=== PATIENT | female | born 1950 | race Caucasian/White ===

== ENCOUNTER 2019-04-29 10:39 | Emergency (ER) | payer MEDICARE, OTHER ==
[2019-04-29] MEDS ORDERED: Propofol 200 MG/20 ML SDV IVPUSH ONE (11:28)
--- NOTE | 2019-04-29 11:30 | EDM.PDOC ---
ED HPI GENERAL MEDICAL PROBLEM - General Chief Complaint: Cardiovascular Problem Stated Complaint: MEDICAL Time Seen by Provider: 04/29/19 10:50 Source of Information: Reports: Patient History Limitations: Reports: No Limitations - History of Present Illness INITIAL COMMENTS - FREE TEXT/NARRATIVE: 69-year-old female who underwent a cardiology evaluation in [place] last week, rather thorough including an angiogram which was negative. She did have intermittent bouts of atrial fibrillation however, so was started on Eliquis and scheduled for cardiac rehab. She was in cardiac rehab on Monday for her initial evaluation, and was in a normal sinus rhythm. Over the weekend she developed some intermittent shortness of breath and palpitations on Monday and have been persistent. This morning she showed up for cardiac rehab and was found to be in atrial fibrillation with a rate of 120-130 so was sent to the emergency room. She is very anxious but otherwise feels fine. Duration: Day(s): (Symptoms have been likely from the last 24 to 48 hours) denies Pain Score (Numeric/FACES): 0 - Related Data Allergies Allergy/AdvReac Type Severity Reaction Status Date / Time allopurinol Allergy Unknown Blisters Verified 04/29/19 10:51 adhesive Allergy Itching Verified 04/29/19 10:51 Home Meds: Home Meds Indomethacin 25 mg PO TID PRN 08/18/14 [History] Omeprazole [Prilosec] 40 mg PO DAILY 08/18/14 [History] Adalimumab [Humira Pen] 40 mg SQ ASDIRECTED 05/07/15 [History] Triamcinolone Acetonide [Kenalog 0.1% Oint] 1 applic TOP BID 05/07/15 [History] Fish Oil/DHA/EPA [Fish Oil 1,200 MG] 1,200 mg PO DAILY 05/08/15 [History] Apixaban [Eliquis] 1 tab PO BID 04/29/19 [History] Aspirin [[place] Aspirin] 81 mg PO DAILY 04/29/19 [History] Furosemide [Lasix] 20 mg PO DAILY 04/29/19 [History] Metoprolol Succinate 25 mg PO DAILY 04/29/19 [History] amLODIPine Besylate [Amlodipine Besylate] 1 tab PO DAILY 04/29/19 [History] atorvaSTATin [Lipitor] 40 mg PO BEDTIME 04/29/19 [History] Past Medical History HEENT History: Reports: Cataract, Impaired Vision Gastrointestinal History: Reports: Cholelithiasis, Gastritis, GERD, Hemorrhoids Genitourinary History: Reports: Renal Calculus [employer]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: Musculoskeletal History: Reports: Arthritis, Gout, Osteoporosis Endocrine/Metabolic History: Reports: Obesity/BMI 30+ Hematologic History: Reports: Anemia, Iron Deficiency Dermatologic History: Reports: Psoriasis Other Dermatologic History: dry skin - Infectious Disease History Infectious Disease History: Reports: Chicken Pox, Measles - Past Surgical History HEENT Surgical History: Reports: Adenoidectomy, Cataract Surgery, Tonsillectomy Female Surgical History: Reports: Breast Reduction, Section, D&C, Hysterectomy Musculoskeletal Surgical History: Reports: Arthroscopic Knee, Carpal Tunnel, Joint Replacement, Knee Replacement Dermatological Surgical History: Reports: Plastic Surgical Reconstruction/Repair , Skin Biopsy Social & Family History - Family History HEENT: Reports: Impaired Vision, Macular Degeneration Cardiac: Reports: Angina, CAD GI: Reports: Cholelithiasis, Hiatal Hernia : Reports: Dialysis, Renal Disease/Insufficiency OBGYN: Reports: Dysfunctional uterine bleeding, Musculoskeletal: Reports: Arthritis, Osteoarthritis Neurological: Reports: Neuropathy, Diabetic Endocrine/Metabolic: Reports: Diabetes, type II, Obesity/MBI 30+ Hematologic: Reports: Anemia Immunologic: Reports: None Dermatologic: Reports: Eczema Oncologic: Reports: Other (See Below) Other Oncologic Family History: testicular ca x2 ED ROS GENERAL - Review of Systems Review Of Systems: See Below Constitutional: Denies: Fever, Chills HEENT: Reports: No Symptoms Respiratory: Reports: Shortness of Breath (Especially with activity) Cardiovascular: Reports: Palpitations. Denies: Chest Pain GI/Abdominal: Reports: Nausea (Mild nausea) : Reports: No Symptoms Skin: Reports: No Symptoms Neurological: Reports: No Symptoms Psychiatric: Reports: Anxiety ED EXAM, GENERAL - Physical Exam Exam: See Below Exam Limited By: No Limitations General Appearance: Alert, Anxious Eye Exam: Bilateral Eye: Normal Inspection Respiratory/Chest: No Respiratory Distress, Lungs Clear Cardiovascular: Tachycardia, Irregularly Irregular GI/Abdominal: Non-Tender Neurological: Alert, Oriented Psychiatric: Anxious Skin Exam: Warm, Dry Course - Vital Signs Last Recorded V/S: Last Vital Signs Temp 98 F 04/29/19 11:47 Pulse 122 H 04/29/19 11:47 Resp 21 H 04/29/19 11:47 BP 125/85 04/29/19 11:47 Pulse Ox 97 04/29/19 11:47 - Orders/Labs/Meds Orders: Active Orders 24 hr Category Date Time Status EKG Documentation Completion [RC] ASDIRECTED Care 04/29/19 12:16 Active EKG 12 Lead [EK] Routine Ther 04/29/19 12:16 Ordered Meds: Medications Discontinued Medications Generic Name Dose Route Start Last Admin Trade Name Bari PRN Reason Stop Dose Admin Propofol 100 mg 04/29/19 11:28 04/29/19 13:27 Diprivan 20 Ml IVPUSH 04/29/19 11:29 100 mg ONETIME ONE Administration - Re-Assessments/Exams Free Text/Narrative Re-Assessment/Exam: 04/29/19 11:31 Patient was observed for 20 minutes and continued to be in a rapid atrial fibrillation. She has not had anything oral for over 3 hours, so will be electively cardioverted under propofol sedation. Dr. Akbar Biggs of the hospitalist service assisted. Indications and risks were discussed with the patient and she agreed with the plan. 04/29/19 12:12 Preparations were taken for elective cardioversion, patient was given 100 mg of IV propofol and acquired significant sedation. 200 J of synchronized cardioversion was given, it was unsuccessful so a second synchronized shock was given at 300 J which was successful. Patient was observed for an additional 20 minutes and remained in sinus rhythm. Blood pressure normalized. Bedside care was given while under sedation for 16 minutes. Departure - Departure Time of Disposition: 13:30 Disposition: Home, Self-Care 01 Clinical Impression: Atrial fibrillation with rapid ventricular response Instructions: Atrial Fibrillation, [id number] Referrals: PCP,None [Primary Care Provider] - Forms: ED Department Discharge Care Plan Goals: Continue your current medications, consider an extra dose of metoprolol if you develop palpitations or recurring atrial fibrillation. Follow-up as scheduled and take copies of your heart rhythm to your cardiology consultation. Return to the emergency room at any time if you feel you are worsening such as shortness of breath or fast heart rate, chest pain, or other concerns. Sepsis Event Note - Evaluation Sepsis Screening Result: No Definite Risk - Focused Exam Vital Signs: Vital Signs Temp Pulse Resp BP Pulse Ox 04/29/19 11:47 98 F 122 H 21 H 125/85 97 04/29/19 10:56 98 F 128 H 18 125/77 94 L Date Exam was Performed: 04/29/19 Time Exam was Performed: 13:58 - My Orders Last 24 Hours: My Active Orders 04/29/19 12:16 EKG Documentation Completion [RC] ASDIRECTED EKG 12 Lead [EK] Routine - Assessment/Plan Last 24 Hours: My Active Orders 04/29/19 12:16 EKG Documentation Completion [RC] ASDIRECTED EKG 12 Lead [EK] Routine
[2019-04-29 11:49] VITALS: BP 125/85; PULSE 122
--- NOTE | 2019-04-29 15:51 | PCM.SN ---
- Free Text/Narrative Note: Ms. Solorio is a 69-year-old woman who presented to the emergency department with atrial fibrillation and rapid ventricular response. I was asked to be present as a second provider for the cardioversion, by Dr. Solano. Dr. Solano managed IV sedation as well as the cardioversion. She was cardioverted to sinus rhythm with no significant complications.
== END 2019-04-29 13:15 | disposition home or self-care (01) ==
LOC: JP.ED 10:39
DX: I48.91 Unspecified atrial fibrillation (principal); K21.9 Gastro-esophageal reflux disease without esophagitis; M10.9 Gout, unspecified; E66.9 Obesity, unspecified; Z79.82 Long term (current) use of aspirin; Z79.899 Other long term (current) drug therapy; Z98.49 Cataract extraction status, unspecified eye; Z98.890 Other specified postprocedural states; Z90.710 Acquired absence of both cervix and uterus; Z91.09 Other allergy status, other than to drugs and biological substances; Z88.8 Allergy status to other drugs, medicaments and biological substances
CPT/HCPCS: 92960; 93005; 93010; 99284; 99285; J2704

== ENCOUNTER 2019-05-13 10:50 | Emergency (ER) | payer MEDICARE, OTHER ==
[2019-05-13] MEDS ORDERED: Propofol 200 MG/20 ML SDV IVPUSH ONE (11:56)
--- NOTE | 2019-05-13 11:56 | EDM.PDOC ---
ED HPI GENERAL MEDICAL PROBLEM - General Chief Complaint: Cardiovascular Problem Stated Complaint: FROM REHAB Time Seen by Provider: 05/13/19 11:15 Source of Information: Reports: Patient History Limitations: Reports: No Limitations - History of Present Illness INITIAL COMMENTS - FREE TEXT/NARRATIVE: 61-year-old female who showed up for cardiac rehabilitation this morning in atrial fibrillation. She has no symptoms but her rate was 110 to 130 so they sent her to the emergency room.. This is very similar to what happened to her 2 weeks ago which she responded to cardioversion in the emergency room. Onset: Unknown/Unsure Associated Symptoms: Reports: No Other Symptoms - Related Data Allergies Allergy/AdvReac Type Severity Reaction Status Date / Time allopurinol Allergy Unknown Blisters Verified 05/13/19 11:04 adhesive Allergy Itching Verified 05/13/19 11:04 Home Meds: Home Meds Omeprazole [Prilosec] 40 mg PO DAILY 08/18/14 [History] Adalimumab [Humira Pen] 40 mg SQ ASDIRECTED 05/07/15 [History] Triamcinolone Acetonide [Kenalog 0.1% Oint] 1 applic TOP BID 05/07/15 [History] Fish Oil/DHA/EPA [Fish Oil 1,200 MG] 1,200 mg PO DAILY 05/08/15 [History] Apixaban [Eliquis] 1 tab PO BID 04/29/19 [History] Aspirin [[place] Aspirin] 81 mg PO DAILY 04/29/19 [History] Furosemide [Lasix] 20 mg PO DAILY 04/29/19 [History] Metoprolol Succinate 25 mg PO DAILY 04/29/19 [History] amLODIPine Besylate [Amlodipine Besylate] 1 tab PO DAILY 04/29/19 [History] atorvaSTATin [Lipitor] 40 mg PO BEDTIME 04/29/19 [History] Past Medical History HEENT History: Reports: Cataract, Impaired Vision Gastrointestinal History: Reports: Cholelithiasis, Gastritis, GERD, Hemorrhoids Genitourinary History: Reports: Renal Calculus 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: Musculoskeletal History: Reports: Arthritis, Gout, Osteoporosis Endocrine/Metabolic History: Reports: Obesity/BMI 30+ Hematologic History: Reports: Anemia, Iron Deficiency Dermatologic History: Reports: Psoriasis Other Dermatologic History: dry skin - Infectious Disease History Infectious Disease History: Reports: Chicken Pox, Measles - Past Surgical History Head Surgeries/Procedures: Reports: None HEENT Surgical History: Reports: Adenoidectomy, Cataract Surgery, Tonsillectomy Female Surgical History: Reports: Breast Reduction, Section, D&C, Hysterectomy Musculoskeletal Surgical History: Reports: Arthroscopic Knee, Carpal Tunnel, Joint Replacement, Knee Replacement Dermatological Surgical History: Reports: Plastic Surgical Reconstruction/Repair , Skin Biopsy Social & Family History - Family History HEENT: Reports: Impaired Vision, Macular Degeneration Cardiac: Reports: Angina, CAD GI: Reports: Cholelithiasis, Hiatal Hernia : Reports: Dialysis, Renal Disease/Insufficiency OBGYN: Reports: Dysfunctional uterine bleeding, Musculoskeletal: Reports: Arthritis, Osteoarthritis Neurological: Reports: Neuropathy, Diabetic Endocrine/Metabolic: Reports: Diabetes, type II, Obesity/MBI 30+ Hematologic: Reports: Anemia Immunologic: Reports: None Dermatologic: Reports: Eczema Oncologic: Reports: Other (See Below) Other Oncologic Family History: testicular ca x2 - Tobacco Use Smoking Status *Q: Never Smoker - Caffeine Use Caffeine Use: Reports: Coffee Caffeine Use Comment: has not had in over 2 weeks - Recreational Drug Use Recreational Drug Use: Yes Recreational Drug Type: Reports: Marijuana/Hashish ED ROS GENERAL - Review of Systems Review Of Systems: See Below Constitutional: Denies: Fever, Chills, Malaise HEENT: Reports: No Symptoms Respiratory: Denies: Shortness of Breath, Cough Cardiovascular: Denies: Chest Pain GI/Abdominal: Denies: Abdominal Pain Musculoskeletal: Reports: Other (She has persistent left lower extremity edema secondary to a surgery on her knee which seems to be responding to recently prescribed Lasix) Neurological: Reports: No Symptoms Psychiatric: Reports: Anxiety ED EXAM, GENERAL - Physical Exam Exam: See Below Exam Limited By: No Limitations General Appearance: Alert, No Apparent Distress Head: Atraumatic Neck: Normal Inspection Respiratory/Chest: No Respiratory Distress, Lungs Clear Cardiovascular: Irregularly Irregular GI/Abdominal: Soft, Non-Tender Course - Vital Signs Last Recorded V/S: Last Vital Signs Temp 95.4 F 05/13/19 11:09 Pulse 78 05/13/19 12:55 Resp 15 05/13/19 12:49 BP 113/83 05/13/19 12:55 Pulse Ox 98 05/13/19 12:49 - Orders/Labs/Meds Meds: Medications Discontinued Medications Generic Name Dose Route Start Last Admin Trade Name Freq PRN Reason Stop Dose Admin Metoprolol Tartrate 25 mg 05/13/19 12:38 05/13/19 12:55 Lopressor PO 05/13/19 12:39 25 mg ONETIME ONE Administration Propofol 100 mg 05/13/19 11:56 05/13/19 12:34 Diprivan 20 Ml IVPUSH 05/13/19 11:57 80 mg ONETIME ONE Administration - Re-Assessments/Exams Free Text/Narrative Re-Assessment/Exam: 05/13/19 11:56 EKG confirms atrial fibrillation with a rate between 110 and 125. She has not eaten for the last 3-1/2 hours, so cardioversion again would be reasonable. After discussing this with the patient, she elected to try cardioversion. 05/13/19 12:39 After consent, using propofol sedation and electrocardioversion at 300 J she was converted to sinus rhythm. After waking up in next 25 mg of short-acting metoprolol was given orally. Tomorrow she will start with 50 mg long-acting metoprolol daily instead of 25. Departure - Departure Time of Disposition: 13:08 Disposition: Home, Self-Care 01 Clinical Impression: Atrial fibrillation with rapid ventricular response Instructions: Atrial Fibrillation, [id number] Referrals: PCP,None [Primary Care Provider] - Forms: ED Department Discharge Care Plan Goals: Increase her metoprolol to 50 mg daily starting tomorrow morning, and go to rehabilitation on Monday as usual. Sepsis Event Note - Evaluation Sepsis Screening Result: No Definite Risk - Focused Exam Vital Signs: Vital Signs Temp Pulse Pulse Resp BP BP Pulse Ox 05/13/19 12:55 78 113/83 05/13/19 12:49 84 15 100/72 98 05/13/19 12:44 80 13 109/69 98 05/13/19 12:38 82 13 113/83 96 05/13/19 12:34 84 15 113/64 92 L 05/13/19 12:28 78 22 H 106/66 97 05/13/19 12:24 111 H 15 127/79 100 05/13/19 12:19 121 H 14 101/77 05/13/19 11:49 113 H 15 111/76 05/13/19 11:19 112 H 14 108/84 05/13/19 11:09 95.4 F 112 H 15 119/77 97 05/13/19 11:03 95.4 F 112 H 15 119/77 97 Date Exam was Performed: 05/13/19 Time Exam was Performed: 14:30
[2019-05-13] MEDS ORDERED: Metoprolol Tartrate 25 MG Tab PO ONE (12:38)
[2019-05-13 12:56] VITALS: BP 113/83; PULSE 78
--- NOTE | 2019-05-13 14:19 | PCM.SN ---
- Free Text/Narrative Note: Ms. Solorio is a 69-year-old woman who presented to the emergency department with atrial fibrillation and rapid ventricular response. I was asked by Dr. Flores to be present as a second provider for IV sedation and electrical cardioversion. Was present during the procedure and sedation, providing backup. She was successfully converted to sinus rhythm using 300 J of energy delivered in a synchronized fashion. Dr. Flores supervised the cardioversion and IV sedation, please see his note for details of the procedure.
== END 2019-05-13 13:09 | disposition home or self-care (01) ==
LOC: JP.ED 10:50
DX: I48.91 Unspecified atrial fibrillation (principal); M19.90 Unspecified osteoarthritis, unspecified site; K21.9 Gastro-esophageal reflux disease without esophagitis; E66.9 Obesity, unspecified; Z68.42 Body mass index [BMI] 45.0-49.9, adult; Z88.8 Allergy status to other drugs, medicaments and biological substances; Z91.048 Other nonmedicinal substance allergy status; Z79.01 Long term (current) use of anticoagulants; Z79.899 Other long term (current) drug therapy; Z79.82 Long term (current) use of aspirin
CPT/HCPCS: 92960; 93010; 99283; 99285; A9270; J2704

== ENCOUNTER 2019-05-24 11:37 | Emergency (ER) | payer MEDICARE, OTHER ==
[2019-05-24] MEDS ORDERED: Metoprolol Tartrate 25 MG Tab PO ONE ×2 (12:02→13:05)
--- NOTE | 2019-05-24 12:08 | EDM.PDOC ---
ED HPI GENERAL MEDICAL PROBLEM - General Chief Complaint: Cardiovascular Problem Stated Complaint: HEART RELATED Time Seen by Provider: 05/24/19 11:50 Source of Information: Reports: Patient, Old Records History Limitations: Reports: No Limitations - History of Present Illness INITIAL COMMENTS - FREE TEXT/NARRATIVE: 69 yo female with intermittent afib presents in afib with RVR that began just before arrival at cardiac rehab. Is mildly SOB with exertion, otherwise asymptomatic. Onset: Today Onset Date: 05/24/19 Onset Time: 11:45 Duration: Minutes:, Constant Location: Reports: Chest Quality: Reports: Other (no pain) Severity: Mild Improves with: Reports: Rest Worsens with: Reports: Movement Context: Reports: Other (See HPI) Associated Symptoms: Reports: Shortness of Breath (with exertion only) Treatments FINDING FASTENER: Reports: Other (see below) (none) - Related Data Allergies Allergy/AdvReac Type Severity Reaction Status Date / Time allopurinol Allergy Unknown Blisters Verified 05/13/19 11:04 adhesive Allergy Itching Verified 05/13/19 11:04 Home Meds: Home Meds Omeprazole [Prilosec] 40 mg PO DAILY 08/18/14 [History] Adalimumab [Humira Pen] 40 mg SQ ASDIRECTED 05/07/15 [History] Triamcinolone Acetonide [Kenalog 0.1% Oint] 1 applic TOP BID PRN 05/07/15 [ History] Fish Oil/DHA/EPA [Fish Oil 1,200 MG] 1,200 mg PO DAILY 05/08/15 [History] Apixaban [Eliquis] 1 tab PO BID 04/29/19 [History] Aspirin [Britt Aspirin] 81 mg PO DAILY 04/29/19 [History] Furosemide [Lasix] 20 mg PO DAILY 04/29/19 [History] Metoprolol Succinate 50 mg PO DAILY 04/29/19 [History] amLODIPine Besylate [Amlodipine Besylate] 1 tab PO DAILY 04/29/19 [History] atorvaSTATin [Lipitor] 40 mg PO BEDTIME 04/29/19 [History] Magnesium Oxide 400 mg PO DAILY #30 tab 05/24/19 [Rx] Potassium Chloride 10 meq PO TID #20 cap.er 05/24/19 [Rx] Past Medical History HEENT History: Reports: Cataract, Impaired Vision Gastrointestinal History: Reports: Cholelithiasis, Gastritis, GERD, Hemorrhoids Genitourinary History: Reports: Renal Calculus SHOVE UP History: Reports: Musculoskeletal History: Reports: Arthritis, Gout, Osteoporosis Endocrine/Metabolic History: Reports: Obesity/BMI 30+ Hematologic History: Reports: Anemia, Iron Deficiency Dermatologic History: Reports: Psoriasis Other Dermatologic History: dry skin - Infectious Disease History Infectious Disease History: Reports: Chicken Pox, Measles - Past Surgical History Head Surgeries/Procedures: Reports: None HEENT Surgical History: Reports: Adenoidectomy, Cataract Surgery, Tonsillectomy Female Surgical History: Reports: Breast Reduction, Section, D&C, Hysterectomy Musculoskeletal Surgical History: Reports: Arthroscopic Knee, Carpal Tunnel, Joint Replacement, Knee Replacement Dermatological Surgical History: Reports: Plastic Surgical Reconstruction/Repair , Skin Biopsy Social & Family History - Family History HEENT: Reports: Impaired Vision, Macular Degeneration Cardiac: Reports: Angina, CAD GI: Reports: Cholelithiasis, Hiatal Hernia : Reports: Dialysis, Renal Disease/Insufficiency OBGYN: Reports: Dysfunctional uterine bleeding, Musculoskeletal: Reports: Arthritis, Osteoarthritis Neurological: Reports: Neuropathy, Diabetic Endocrine/Metabolic: Reports: Diabetes, type II, Obesity/MBI 30+ Hematologic: Reports: Anemia Immunologic: Reports: None Dermatologic: Reports: Eczema Oncologic: Reports: Other (See Below) Other Oncologic Family History: testicular ca x2 - Tobacco Use Smoking Status *Q: Former Smoker Used Tobacco, but Quit: No Second Hand Smoke Exposure: No - Caffeine Use Caffeine Use: Reports: Soda Other Caffeine Use: no caffiene since april 09 Caffeine Use Comment: has not had in over 2 weeks - Recreational Drug Use Recreational Drug Use: Yes Recreational Drug Type: Reports: Marijuana/Hashish Recreational Drug Use Frequency: Rarely ED ROS GENERAL - Review of Systems Review Of Systems: See Below Constitutional: Reports: No Symptoms HEENT: Reports: No Symptoms Respiratory: Denies: Shortness of Breath, Wheezing, Pleuritic Chest Pain, Cough Cardiovascular: Reports: Dyspnea on Exertion. Denies: Chest Pain GI/Abdominal: Reports: No Symptoms : Reports: No Symptoms Skin: Reports: No Symptoms Neurological: Reports: No Symptoms ED EXAM, GENERAL - Physical Exam Exam: See Below Exam Limited By: No Limitations General Appearance: Alert, WD/WN, No Apparent Distress Eye Exam: Bilateral Eye: Normal Inspection Ear Exam: Bilateral Ear: Auricle Normal, Canal Normal Nose: Normal Inspection, No Blood Throat/Mouth: Normal Inspection, Normal Lips, Normal Oropharynx, Normal Voice, No Airway Compromise Head: Atraumatic, Normocephalic Neck: Normal Inspection Respiratory/Chest: No Respiratory Distress, Lungs Clear, Normal Breath Sounds, No Accessory Muscle Use Cardiovascular: No Edema, Tachycardia, Irregularly Irregular GI/Abdominal: Normal Bowel Sounds, Soft, Non-Tender, No Distention Extremities: Normal Inspection, Normal Range of Motion, Non-Tender, No Pedal Edema Neurological: Alert, Oriented, CN II-XII Intact, Normal Cognition, No Motor/ Sensory Deficits Psychiatric: Normal Affect, Normal Mood Skin Exam: Warm, Dry, Intact, Normal Color EKG INTERPRETATION EKG Date: 05/24/19 Time: 11:35 Rhythm: A-Fib Rate (Beats/Min): 120 [place]: Normal P-Wave: Variable QRS: Normal ST-T: Normal QT: Normal Comparison: No Change Course - Vital Signs Text/Narrative:: Spoke with [facility]'s cardiac PA, OK with attempting slowing of rate to see how she tolerates this. Last Recorded V/S: Last Vital Signs Temp 35.9 C L 05/24/19 12:16 Pulse 108 H 05/24/19 13:23 Resp 14 05/24/19 13:23 BP 104/70 05/24/19 13:23 Pulse Ox 95 05/24/19 13:23 - Orders/Labs/Meds Orders: Active Orders 24 hr Category Date Time Status Cardiac Monitoring [RC] .As Directed Care 05/24/19 12:02 Active EKG Documentation Completion [RC] ASDIRECTED Care 05/24/19 12:03 Active Magnesium Sulfate/Water [Magnesium Sulfate in Water Med 05/24/19 13:38 Active Premix] 2 gm Premix Bag 1 bag IV ONETIME EKG 12 Lead [EK] Routine Ther 05/24/19 12:02 Ordered Medication Orders Magnesium Sulfate 2 gm/ Premix 50 mls @ 12.5 mls/hr IV ONETIME ONE Stop: 05/24/19 17:37 Last Admin: 05/24/19 14:14 Dose: 12.5 mls/hr Labs: Laboratory Tests 05/24/19 05/24/19 05/24/19 Range/Units 12:34 12:34 12:34 Sodium 143 (140-148) mmol/L Potassium 3.2 L (3.6-5.2) mmol/L Chloride 102 (100-108) mmol/L Carbon Dioxide 29 (21-32) mmol/L Anion Gap 15.2 H (5.0-14.0) mmol/L BUN 9 (7-18) mg/dL Creatinine 1.0 (0.6-1.0) mg/dL Est Cr Clr Drug Dosing TNP Estimated GFR (MDRD) 55 L (>60) Glucose 100 (74-106) mg/dL Calcium 8.4 L (8.5-10.1) mg/dL Magnesium (1.8-2.4) mg/dL Troponin I < 0.017 (0.000-0.056) ng/mL TSH, Ultra Sensitive 2.536 (0.358-3.740) uIU/mL 05/24/19 Range/Units 13:16 Sodium (140-148) mmol/L Potassium (3.6-5.2) mmol/L Chloride (100-108) mmol/L Carbon Dioxide (21-32) mmol/L Anion Gap (5.0-14.0) mmol/L BUN (7-18) mg/dL Creatinine (0.6-1.0) mg/dL Est Cr Clr Drug Dosing Estimated GFR (MDRD) (>60) Glucose (74-106) mg/dL Calcium (8.5-10.1) mg/dL Magnesium 1.1 L (1.8-2.4) mg/dL Troponin I (0.000-0.056) ng/mL TSH, Ultra Sensitive (0.358-3.740) uIU/mL Meds: Medications Generic Name Dose Route Start Last Admin Trade Name Freq PRN Reason Stop Dose Admin Magnesium Sulfate 2 gm/ Premix 50 mls @ 12.5 mls/hr 05/24/19 13:38 05/24/19 14:14 IV 05/24/19 17:37 12.5 mls/hr ONETIME ONE Administration Discontinued Medications Generic Name Dose Route Start Last Admin Trade Name Freq PRN Reason Stop Dose Admin Magnesium Oxide 800 mg 05/24/19 13:38 05/24/19 14:12 Magnesium Oxide PO 05/24/19 13:39 800 mg ONETIME ONE Administration Metoprolol Tartrate 25 mg 05/24/19 12:02 05/24/19 12:07 Lopressor PO 05/24/19 12:03 25 mg ONETIME ONE Administration Metoprolol Tartrate 25 mg 05/24/19 13:05 05/24/19 13:11 Lopressor PO 05/24/19 13:06 25 mg ONETIME ONE Administration Potassium Chloride 40 meq 05/24/19 13:16 05/24/19 14:12 Potassium Chloride PO 05/24/19 13:17 40 meq ONETIME ONE Administration Departure - Departure Time of Disposition: 16:35 Disposition: Home, Self-Care 01 Condition: Fair Clinical Impression: Atrial fibrillation with RVR, Hypomagnesemia, Hypokalemia Prescriptions: Magnesium Oxide 400 mg PO DAILY #30 tab Potassium Chloride 10 meq PO TID #20 cap.er Instructions: Hypomagnesemia, Hypokalemia, Atrial Fibrillation, [id number] Referrals: PCP,None [Primary Care Provider] - Forms: ED Department Discharge Additional Instructions: Increase your metoprolol succinate to 100 mg every day, take at bedtime now to coordinate dosing given in the ER. Take Magnesium and potassium as directed. Recheck with your provider next week as scheduled in [place]. Return as needed. Sepsis Event Note - Focused Exam Vital Signs: Vital Signs Temp Pulse Pulse Resp BP BP Pulse Ox 05/24/19 13:23 108 H 14 104/70 95 05/24/19 13:11 104 H 111/80 05/24/19 12:16 35.9 C L 101 H 16 112/59 L 100 05/24/19 12:07 101 H 108/71 05/24/19 11:50 35.4 C L 113 H 21 H 108/74 98 Date Exam was Performed: 05/24/19 Time Exam was Performed: 16:35 - My Orders Last 24 Hours: My Active Orders 05/24/19 12:02 Cardiac Monitoring [RC] .As Directed EKG 12 Lead [EK] Routine 05/24/19 12:03 EKG Documentation Completion [RC] ASDIRECTED 05/24/19 13:38 Magnesium Sulfate/Water [Magnesium Sulfate in Water Premix] 2 gm Premix Bag 1 bag IV ONETIME - Assessment/Plan Last 24 Hours: My Active Orders 05/24/19 12:02 Cardiac Monitoring [RC] .As Directed EKG 12 Lead [EK] Routine 02/14/20 12:03 EKG Documentation Completion [RC] ASDIRECTED 05/24/19 13:38 Magnesium Sulfate/Water [Magnesium Sulfate in Water Premix] 2 gm Premix Bag 1 bag IV ONETIME
[2019-05-24] MEDS ORDERED: Potassium Chloride 10 MEQ Cap.ER PO ONE (13:16)
[2019-05-24] MEDS ORDERED: Magnesium Sulfate/Water 2 GM in Premix Bag 1 BAG IV ONE (13:38)
[2019-05-24] MEDS ORDERED: Magnesium Oxide 400 MG Tab PO ONE (13:38)
[2019-05-24 13:50] VITALS: BP 104/70; PULSE 108
== END 2019-05-24 17:45 | disposition home or self-care (01) ==
LOC: JP.ED 11:37
DX: I48.91 Unspecified atrial fibrillation (principal); E83.42 Hypomagnesemia; E87.6 Hypokalemia; E66.9 Obesity, unspecified; K21.9 Gastro-esophageal reflux disease without esophagitis; Z88.8 Allergy status to other drugs, medicaments and biological substances; Z91.048 Other nonmedicinal substance allergy status; Z79.82 Long term (current) use of aspirin; Z87.891 Personal history of nicotine dependence; Z79.01 Long term (current) use of anticoagulants; Z79.899 Other long term (current) drug therapy
CPT/HCPCS: 36415; 80048; 83735; 84443; 84484; 93005; 96365; 96366; 99284; 99285; A9270; J3475; 93010

== ENCOUNTER 2019-06-25 08:27 | Day surgery (SDC) | payer MEDICARE, OTHER ==
[~2019-06-25 08:27] MED LIST: Bupivacaine 0.5%/EPINEPHrine 1:200,000 50 ML MDV ONE; Dexamethasone 4 MG/ML SDV ONE; Glycopyrrolate 0.2 MG/ML 5 ML MDV ONE; Hydrogen Peroxide 3% Top Soln 240 ML Bottle ONE; Lidocaine 2% Jelly 10 ML Urojet ONE; Neostigmine Methylsulfate 1 MG/ML 5 ML Syringe ONE; Ondansetron 4 MG/2 ML SDV ONE; Propofol 200 MG/20 ML SDV ONE; Rocuronium 50 MG/5 ML Vial ONE; Succinylcholine 200 MG/10 ML MDV ONE; fentaNYL 250 MCG/5 ML SDV ONE
[2019-06-25] MEDS ORDERED: cefOXitin 2 GM in Sodium Chloride 0.9% 50 ML IV ONE (09:00)
[2019-06-25] MEDS ORDERED: Dextrose 5%-Lactated Ringers 1,000 ML IV SCH (09:00)
[2019-06-25] MEDS ORDERED: Hydrocortisone Sodium Succinate 100 MG/2 ML SDV IV PRN (11:56)
[2019-06-25] MEDS ORDERED: Famotidine 20 MG/2 ML SDV IV PRN (11:57)
[2019-06-25] MEDS ORDERED: diphenhydrAMINE 50 MG/ML SDV IVPUSH PRN (11:57)
[2019-06-25] MEDS ORDERED: Sodium Chloride 0.9% 1,000 ML IV SCH (12:00)
[2019-06-25] MEDS ORDERED: Sodium Chloride 0.9% 10 ML ONE (12:10)
[2019-06-25] MEDS ORDERED: Iron Sucrose Complex 500 MG in Sodium Chloride 0.9% 250 ML IV ONE (12:15)
[2019-06-25 16:26] VITALS: BP 100/53; PULSE 82
--- NOTE | 2019-07-03 13:32 | OR ---
DATE OF PROCEDURE: 06/25/2019 SURGEON: Ascencion Varghese MD PREOPERATIVE DIAGNOSIS: Bleeding prolapsing hemorrhoids. POSTOPERATIVE DIAGNOSES: Bleeding prolapsing hemorrhoids with a second-degree rectal prolapse on right side of rectum. OPERATIVE PROCEDURES: 1. Hemorrhoidectomy (46423). 2. Delorme-type proctopexy (86052). ANESTHESIA: General. INDICATION FOR PROCEDURE: This is a 69-year-old female, who is on Eliquis for cardiovascular issues, who has had persistent problems with bleeding hemorrhoids. A band was applied 2 weeks or so ago in the clinic, which temporarily stopped the bleeding, but the bleeding did start and at the time of the banding, she had quite a bit of bleeding as well. Given this, the plan is to proceed with a surgical hemorrhoidectomy, which should be more effective in terms of controlling postoperative bleeding. Potential risks of the procedure including bleeding, infection, problems with fecal incontinence postoperatively, along with the remote possibility of cardiopulmonary, septic, or hemorrhagic complications leading to were discussed, and the patient wishes to proceed. DETAILS OF PROCEDURE: The patient was taken to the operating room and placed in a supine position. After general endotracheal anesthesia was induced, she was converted to a lithotomy position and a perianal prep was then performed. On the initial examination, the patient was noted to have much more in the way of prolapse on the right side of the anal ring than seen when she was awake. Three columns of hemorrhoids were present on this side, one of which was actively bleeding with placement of anal retraction. These 3 hemorrhoid columns were then divided, excised, and sent for pathologic exam. These combined external and internal hemorrhoidal columns. With the underlying mucosa being stripped by means of resection of the hemorrhoidal tissue, a Delorme-type proctopexy was applied to the right side of the anal canal. This was with some 3-0 Vicryl stitch, beginning at the lower outer mucosa and extending up, including the underlying musculature to imbricate that and then up to the intact mucosa proximally. A total of 4 of these stitches were placed, and this appeared to, both, control any bleeding there might be present as well as repair of the prolapse. At this point, no further problems were noted. Packing was placed. The area was anesthetized with some 0.5% Marcaine with epinephrine. The patient was taken to the recovery room in satisfactory condition. The patient has been dealing with a fair bit of bleeding, and we will obtain a ferritin level done today and if it is low, would consider giving an iron infusion. Otherwise, we will have her start the Eliquis again tomorrow. Ascencion Varghese MD /[id number]
== END 2019-06-25 16:39 | disposition home or self-care (01) ==
LOC: JP.SDS 08:27
PROVIDERS: ATTEND Surgery
DX: K64.1 Second degree hemorrhoids (principal); K64.4 Residual hemorrhoidal skin tags; F41.9 Anxiety disorder, unspecified; M10.9 Gout, unspecified; E78.5 Hyperlipidemia, unspecified; I25.2 Old myocardial infarction; Z98.890 Other specified postprocedural states; Z79.01 Long term (current) use of anticoagulants; Z79.899 Other long term (current) drug therapy; Z79.82 Long term (current) use of aspirin; Z88.8 Allergy status to other drugs, medicaments and biological substances; Z91.09 Other allergy status, other than to drugs and biological substances
CPT/HCPCS: 36415; 45541; 46260; 82728; 85027; 88304; J0330; J0694; J1100; J1756; J2405; J2704; J2710; J3010; J3490; J7030; J7050; J7121; A9270-GY

== ENCOUNTER 2019-09-14 09:40 | Emergency (ER) | payer MEDICARE, OTHER ==
[2019-09-14 10:02] VITALS: BP 138/50; PULSE 71
--- NOTE | 2019-09-14 10:52 | EDM.PDOC ---
ED HPI GENERAL MEDICAL PROBLEM - General Chief Complaint: Lower Extremity Injury/Pain Stated Complaint: LT FOOT AND ANKLE PAIN Time Seen by Provider: 09/14/19 10:15 Source of Information: Reports: Patient History Limitations: Reports: No Limitations - History of Present Illness INITIAL COMMENTS - FREE TEXT/NARRATIVE: 69-year-old female with severe left foot pain for the past 2 days after trying some new shoes and working in the yard on uneven surfaces. Today the pain is so intense she can barely bear weight. The pain is located on the top and lateral aspect of the left foot, there is also some swelling and edema. No redness, warmth, isolated joint swelling or pain, or bruising. She has no direct remembrance of particular trauma. Onset: Gradual Duration: Day(s): (Symptoms have developed over the last 3 days) Location: Reports: Lower Extremity, Left Associated Symptoms: Reports: No Other Symptoms left foot and ankle Pain Score (Numeric/FACES): 14 - Related Data Allergies Allergy/AdvReac Type Severity Reaction Status Date / Time adhesive Allergy Rash Verified 09/14/19 10:02 allopurinol Allergy Rash Verified 09/14/19 10:02 Home Meds: Home Meds Omeprazole [Prilosec] 40 mg PO DAILY 08/18/14 [History] Adalimumab [Humira Pen] 40 mg SQ .[id number] 05/07/15 [History] Triamcinolone Acetonide [Kenalog 0.1% Oint] 1 applic TOP BID PRN 05/07/15 [ History] Apixaban [Eliquis] 5 tab PO BID 04/29/19 [History] Aspirin [George Aspirin] 81 mg PO DAILY 04/29/19 [History] Furosemide [Lasix] 20 mg PO DAILY 04/29/19 [History] Metoprolol Succinate 50 mg PO .MORNING 04/29/19 [History] amLODIPine Besylate [Amlodipine Besylate] 5 mg PO DAILY 04/29/19 [History] atorvaSTATin [Lipitor] 40 mg PO BEDTIME 04/29/19 [History] Magnesium Oxide 400 mg PO DAILY #30 tab 05/24/19 [Rx] Metoprolol Succinate [Toprol XL 50mg] 100 mg PO BEDTIME 06/21/19 [History] Potassium Chloride 10 meq PO BID 06/21/19 [History] Febuxostat 40 mg PO DAILY 09/14/19 [History] Past Medical History HEENT History: Reports: Cataract, Impaired Vision Cardiovascular History: Reports: Afib, High Cholesterol, CT Respiratory History: Reports: None Gastrointestinal History: Reports: Cholelithiasis, Gastritis, GERD, Hemorrhoids Genitourinary History: Reports: Renal Calculus [employer]END[employer] History: Reports: Musculoskeletal History: Reports: Arthritis, Gout, Osteoporosis Neurological History: Reports: None Psychiatric History: Reports: Anxiety Endocrine/Metabolic History: Reports: Obesity/BMI 30+ Hematologic History: Reports: Anemia, Iron Deficiency Oncologic (Cancer) History: Reports: None Dermatologic History: Reports: Psoriasis Other Dermatologic History: dry skin - Infectious Disease History Infectious Disease History: Reports: Chicken Pox, Influenza, Measles, Mumps - Past Surgical History Head Surgeries/Procedures: Reports: None HEENT Surgical History: Reports: Adenoidectomy, Cataract Surgery, Tonsillectomy Cardiovascular Surgical History: Reports: Other (See Below) Other Cardiovascular Surgeries/Procedures: ANGIOGRAM APRIL 2019 GI Surgical History: Reports: Cholecystectomy Female Surgical History: Reports: Breast Reduction, Section, D&C, Hysterectomy Endocrine Surgical History: Reports: None Musculoskeletal Surgical History: Reports: Arthroscopic Knee, Carpal Tunnel, Joint Replacement, Knee Replacement Dermatological Surgical History: Reports: Plastic Surgical Reconstruction/Repair , Skin Biopsy Social & Family History - Family History HEENT: Reports: Impaired Vision, Macular Degeneration Cardiac: Reports: Angina, CAD GI: Reports: Cholelithiasis, Hiatal Hernia : Reports: Dialysis, Renal Disease/Insufficiency OBGYN: Reports: Dysfunctional uterine bleeding, Musculoskeletal: Reports: Arthritis, Osteoarthritis Neurological: Reports: Neuropathy, Diabetic Endocrine/Metabolic: Reports: Diabetes, type II, Obesity/MBI 30+ Hematologic: Reports: Anemia Immunologic: Reports: None Dermatologic: Reports: Eczema Oncologic: Reports: Other (See Below) Other Oncologic Family History: testicular ca x2 - Tobacco Use Smoking Status *Q: Never Smoker - Caffeine Use Caffeine Use: Reports: None Other Caffeine Use: no caffiene since april 09 Caffeine Use Comment: has not had in over 2 weeks - Recreational Drug Use Recreational Drug Type: Reports: Marijuana/Hashish Recreational Drug Use Frequency: Rarely Review of Systems - Review of Systems Review Of Systems: See Below Constitutional: Denies: Fever Respiratory: Denies: Shortness of Breath Cardiovascular: Denies: Chest Pain, Palpitations (Intermittent atrial fibrillation has been stable over the past few months) GI/Abdominal: Denies: Diarrhea, Nausea Skin: Denies: Bruising Neurological: Denies: Paresthesia ED EXAM, GENERAL - Physical Exam Exam: See Below Exam Limited By: No Limitations General Appearance: Alert, No Apparent Distress, Other (No distress but significantly uncomfortable when she tries to bear any weight on the left foot) Head: Atraumatic Respiratory/Chest: No Respiratory Distress Cardiovascular: Regular Rate, Rhythm Extremities: Other (Exam is otherwise limited to the lower extremities. There is soft tissue swelling over the dorsal and lateral aspect of the left foot compared to the right. On palpation she has exquisite tenderness over the flexor tendons on the top of the foot and around the fourth and fifth metatarsals. No warmth, no isolated joint tenderness and no crepitus.) Course - Vital Signs Last Recorded V/S: Last Vital Signs Temp 97.1 F 09/14/19 10:00 Pulse 71 09/14/19 10:00 Resp 16 09/14/19 10:00 BP 138/50 L 09/14/19 10:00 Pulse Ox 93 L 09/14/19 10:00 - Orders/Labs/Meds Orders: Active Orders 24 hr Category Date Time Status Foot Comp Min 3V Lt [CR] Stat Exams 09/14/19 10:21 Taken DME for Discharge [COMM] Stat Oth 09/14/19 11:08 Ordered - Re-Assessments/Exams Free Text/Narrative Re-Assessment/Exam: 09/14/19 11:06 X-ray of the left foot was obtained that showed no fracture. A 4 inch Nathan wrap was applied to the foot, she was given crutches, and 10 hydrocodone for extra pain control. If not improved by Monday I asked her to see Dr. Sanchez at the clinic for reevaluation. Departure - Departure Time of Disposition: 11:14 Disposition: Home, Self-Care 01 Clinical Impression: Tendinitis of left foot - Discharge Information Instructions: Tendinitis Referrals: Maru Juarez PA [Primary Care Provider] - Forms: ED Department Discharge Care Plan Goals: Wear Nathan wrap, elevate foot, and slowly increase activity as tolerated. Use crutches initially to assist with weightbearing. Recheck on Monday or Monday next week with Dr. Sanchez at [facility] if not improving satisfactorily. Sepsis Event Note - Evaluation Sepsis Screening Result: No Definite Risk - Focused Exam Vital Signs: Vital Signs Temp Pulse Resp BP Pulse Ox 09/14/19 10:00 97.1 F 71 16 138/50 L 93 L Date Exam was Performed: 09/14/19 Time Exam was Performed: 16:43 - My Orders Last 24 Hours: My Active Orders 09/14/19 10:21 Foot Comp Min 3V Lt [CR] Stat 09/14/19 11:08 DME for Discharge [COMM] Stat - Assessment/Plan Last 24 Hours: My Active Orders 09/14/19 10:21 Foot Comp Min 3V Lt [CR] Stat 09/14/19 11:08 DME for Discharge [COMM] Stat
--- NOTE | 2019-09-16 09:15 | CR ---
Foot Comp Min 3V Lt CLINICAL HISTORY: Pain and swelling FINDINGS: There is generalized soft tissue swelling. There is no acute fracture or dislocation within the foot. No destructive changes are present. There is absence of the fifth the middle phalanx. This may be postsurgical. There is osteoarthritis at the first MTP joint and in the interphalangeal joints. The patient has a calcaneal spur IMPRESSION: Generalized soft tissue swelling of the forefoot. Osteoarthritic change Abscess of the fifth middle phalanx is likely postsurgical Calcaneal spur
== END 2019-09-14 11:42 | disposition home or self-care (01) ==
LOC: JP.ED 09:40
DX: M77.9 Enthesopathy, unspecified (principal); I25.2 Old myocardial infarction; I48.91 Unspecified atrial fibrillation; E78.00 Pure hypercholesterolemia, unspecified; K21.9 Gastro-esophageal reflux disease without esophagitis; E66.9 Obesity, unspecified; Z68.41 Body mass index [BMI] 40.0-44.9, adult; F41.9 Anxiety disorder, unspecified; Z88.8 Allergy status to other drugs, medicaments and biological substances; Z91.048 Other nonmedicinal substance allergy status; Z79.899 Other long term (current) drug therapy; Z79.82 Long term (current) use of aspirin
CPT/HCPCS: 73630-26-LT; 73630-LT; 99283; 99283-25

== ENCOUNTER 2022-04-07 07:54 | Emergency (ER) | payer MEDICARE, OTHER ==
[2022-04-07] MEDS ORDERED: Sodium Chloride 0.9% 10 ML Syringe FLUSH PRN (07:57)
[2022-04-07 08:55] LABS: ESTIMATED GFR 54 mL/min (>60); TROPONIN I HIGH SENSITIVITY 8.4 pg/mL (<=60.3)
[2022-04-07] MEDS ORDERED: Furosemide 40 MG/4 ML VIAL IVPUSH ONE (09:15)
[2022-04-07] MEDS ORDERED: Lisinopril 2.5 MG Tab PO SCH (09:45)
[2022-04-07 11:24] VITALS: BP 126/59; PULSE 47
== END 2022-04-07 11:32 | disposition home or self-care (01) ==
LOC: JP.ED 07:54
DX: R00.1 Bradycardia, unspecified (principal); I11.0 Hypertensive heart disease with heart failure; I50.9 Heart failure, unspecified; I48.91 Unspecified atrial fibrillation; E05.90 Thyrotoxicosis, unspecified without thyrotoxic crisis or storm; E87.70 Fluid overload, unspecified; E78.00 Pure hypercholesterolemia, unspecified; I25.2 Old myocardial infarction; K21.9 Gastro-esophageal reflux disease without esophagitis; E66.9 Obesity, unspecified; E11.9 Type 2 diabetes mellitus without complications; Z68.41 Body mass index [BMI] 40.0-44.9, adult; Z91.048 Other nonmedicinal substance allergy status; Z88.8 Allergy status to other drugs, medicaments and biological substances; Z79.82 Long term (current) use of aspirin; Z79.01 Long term (current) use of anticoagulants; Z79.899 Other long term (current) drug therapy; Z20.822 Contact with and (suspected) exposure to COVID-19
CPT/HCPCS: 36415; 71046; 80053; 83735; 83880; 84439; 84443; 84484; 85025; 85610; 85730; 93005; 93306; 96374; 99285; A9270; J1940; J3490; U0002

== ENCOUNTER 2023-07-18 12:29 | Emergency (ER) | payer MEDICARE, OTHER ==
[2023-07-18] MEDS: Ketorolac 30 MG/ML SDV IM ONE (16:15)
[2023-07-18 16:42] VITALS: BP 115/67; PULSE 57
== END 2023-07-18 17:44 | disposition home or self-care (01) ==
LOC: JP.ED 12:29
DX: S60.211A Contusion of right wrist, initial encounter (principal); I48.91 Unspecified atrial fibrillation; I25.10 Atherosclerotic heart disease of native coronary artery without angina pectoris; E78.00 Pure hypercholesterolemia, unspecified; I25.2 Old myocardial infarction; K21.9 Gastro-esophageal reflux disease without esophagitis; E66.9 Obesity, unspecified; Z79.82 Long term (current) use of aspirin; Z79.899 Other long term (current) drug therapy; Z90.49 Acquired absence of other specified parts of digestive tract; Z79.01 Long term (current) use of anticoagulants; Z91.048 Other nonmedicinal substance allergy status; Z68.41 Body mass index [BMI] 40.0-44.9, adult; W19.XXXA Unspecified fall, initial encounter; Y92.009 Unspecified place in unspecified non-institutional (private) residence as the place of occurrence of the external cause
CPT/HCPCS: 71046; 72100; 73110; 96372; 99283; J1885

== ENCOUNTER 2024-09-05 08:07 | Day surgery (SDC) | payer MEDICARE, OTHER ==
[2024-09-05] MEDS ORDERED: fentaNYL 100 MCG/2 ML SDV ONE (08:37)
[2024-09-05] MEDS ORDERED: Propofol 200 MG/20 ML SDV ONE ×2 (08:37→10:00)
[2024-09-05] MEDS: Lactated Ringers 1,000 ML IV SCH (09:00)
[2024-09-05 10:51] VITALS: PULSE 64
[2024-09-05 11:03] VITALS: BP 120/69
== END 2024-09-05 11:10 | disposition home or self-care (01) ==
LOC: JP.SDS 08:07
PROVIDERS: ATTEND Surgery
DX: Z12.11 Encounter for screening for malignant neoplasm of colon (principal); K64.9 Unspecified hemorrhoids; K21.9 Gastro-esophageal reflux disease without esophagitis; I50.9 Heart failure, unspecified; N18.9 Chronic kidney disease, unspecified; Z88.8 Allergy status to other drugs, medicaments and biological substances
CPT/HCPCS: 45398; J2704; J3010; J7120